=== PATIENT | female | born 2000 | race Caucasian/White ===

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

== ENCOUNTER 2021-05-01 23:44 | Observation (INO) | payer MEDICAID, OTHER ==
[~2021-05-01] VITALS: Ht 162.6 cm; Wt 68.0 kg
[2021-05-02] MEDS ORDERED: LACTATED RINGERS 1,000 ML IV SCH (00:45)
[2021-05-02] MEDS ORDERED: CITRIC ACID/SODIUM CITRATE SOLN 30ML UDC PO PRN (00:45)
[2021-05-02 02:13] LABS: CLARITY URINE CLEAR (CLEAR); COLOR URINE YELLOW (YELLOW); KETONES URINE NEGATIVE (NEGATIVE); LEUKOCYTE ESTERASE URINE NEGATIVE (NEGATIVE); NITRITE URINE NEGATIVE (NEGATIVE); OCCULT BLOOD URINE NEGATIVE (NEGATIVE); PROTEIN URINE NEGATIVE (NEGATIVE); SPECIFIC GRAVITY URINE 1.021 (1.005-1.030)
[2021-05-02] MEDS ORDERED: OMEP40CA20 PO (02:53)
[2021-05-02] MEDS ORDERED: FOLI0.4T6 MT (02:53)
== END 2021-05-02 03:25 | disposition home or self-care (01) ==
LOC: 8 EST LDRP 23:44
PROVIDERS: ADMIT Obstetrics & Gynecology; ATTEND Obstetrics & Gynecology
DX: O26.892 Other specified pregnancy related conditions, second trimester (principal); R10.13 Epigastric pain; R11.0 Nausea; O36.8120 Decreased fetal movements, second trimester, not applicable or unspecified; Z3A.24 24 weeks gestation of pregnancy
CPT/HCPCS: 59025; 76805; 81003; 96360; 96361; G0378; 99281